=== PATIENT | female | born 1985 | race Caucasian/White ===

== ENCOUNTER 2019-04-20 07:13 | Day surgery (SDC) | payer MEDICAID ==
[2019-04-18 11:15] VITALS: BMI 36.6
[~2019-04-20 07:13] MED LIST: LACTATED RINGERS 1,000 ML IV SCH
[2019-04-20 07:31] VITALS: TEMP 99.1
[2019-04-20] MEDS ORDERED: PROPOFOL 10 MG/ML 20 ML VIAL IV ONE (07:40)
[2019-04-20] MEDS ORDERED: LIDOCAINE 1% INJ 10MG/ML (20 ML MDV) ONE (07:40)
--- NOTE | 2019-04-20 07:54 | P.GSHP ---
History of Present Illness H&P Date: 04/20/19 Chief Complaint: Diarrhea This a 33-year-old female who presents today for colonoscopy. She has issues with diarrhea. Past Medical History Additional Past Medical History / Comment(s): CHANGE IN BOWEL HABITS-INCREASE IN DIARRHEA History of Any Multi-Drug Resistant Organisms: None Reported Past Surgical History: Appendectomy Past Anesthesia/Blood Transfusion Reactions: No Reported Reaction Smoking Status: Never smoker - Past Family History Mother Family Medical History: No Reported History Medications and Allergies Home Medications Medication Instructions Recorded Confirmed Type No Known Home Medications 04/18/19 04/20/19 History Allergies Allergy/AdvReac Type Severity Reaction Status Date / Time No Known Allergies Allergy Verified 04/18/19 11:12 Surgical - Exam Vital Signs Temp Pulse Resp BP Pulse Ox 99.1 F 102 H 16 138/83 99 04/20/19 07:29 04/20/19 07:29 04/20/19 07:29 04/20/19 07:29 04/20/19 07:29 - General well developed, well nourished, no distress - Eyes PERRL - ENT normal pinna - Neck no masses - Respiratory normal expansion - Cardiovascular Rhythm: regular - Abdomen Abdomen: soft, non tender Assessment and Plan Assessment: Diarrhea. We'll perform colonoscopy.
[2019-04-20 08:23] VITALS: BP 119/81; PULSE 62; RESP 18
--- NOTE | 2019-04-20 09:56 | P.OP ---
Date of Procedure: 04/20/19 Preoperative Diagnosis: Diarrhea Postoperative Diagnosis: Normal colon Random rectal biopsy Procedure(s) Performed: Colonoscopy Anesthesia: MAC Surgeon: Filiberto Antoine Pathology: other (Rectum) Condition: stable Disposition: PACU Description of Procedure: Date of Procedure: 04/20/19 Preoperative Diagnosis: Diarrhea Postoperative Diagnosis: Normal colon Rectal biopsy Procedure(s) Performed: Colonoscopy Anesthesia: MAC Surgeon: Filiberto Antoine Pathology: other (Rectal biopsy) Condition: stable Disposition: PACU Description of Procedure: Patient's placed on the endoscopy table in the lateral position. She received IV sedation. The digital rectal exam was performed which revealed no abnormalities. Flexible colonoscope was then placed patient anus passed rotator entire colon. Ileocecal valve was visualized. The cecum, ascending and transverse colon appeared normal. The descending and sigmoid colon appeared normal. Scope was brought back the rectum and this appeared normal. However due the patient's symptoms of diarrhea a random rectal biopsy performed with the cold forcep. Scope was withdrawn for patient. Additional CC's: Toshia Huerta
== END 2019-04-20 08:39 | disposition home or self-care (01) ==
LOC: ORWHC2ENDO 07:13
PROVIDERS: ATTEND Surgery
DX: R19.7 Diarrhea, unspecified (principal); Z90.49 Acquired absence of other specified parts of digestive tract; Z87.19 Personal history of other diseases of the digestive system
CPT/HCPCS: 81025; 88305; 45380; J2001; J2704